=== PATIENT | female | born 1965 | race Caucasian/White ===

== ENCOUNTER 2017-10-07 21:35 | Observation (INO) | payer BC ==
[2017-10-07 22:31] LABS: ABS Basophils 0.1 10^3/ul (0-0.2); ABS Eosinophils 0.1 10^3/ul (0-0.6); ABS Lymphocytes 2.5 10^3/ul (1.0-4.8); ABS Monocytes 0.7 10^3/ul (0-0.8); ABS Nucleated RBC 0 10^3/ul; Hematocrit 42 % (35-47); Hemoglobin 14.3 g/dl (12.0-16.0); Lymphocyte % 33.8 % (25-47); Mean Corpuscular HGB Conc 34 g/dl (31-36); Mean Corpuscular Hemoglobin 29 pg (27-31); Mean Corpuscular Volume 84 fL (80-97); Mean Platelet Volume 8 um3 (7.4-10.4); Nucleated Red Blood Cells % 0; Platelet Count 360 10^3/ul (150-450); Red Blood Count 4.99 10^6/ul (4.0-5.4); Red Cell Distribution Width 13 % (10.5-15); White Blood Count 7.5 10^3/ul (3.5-10.8)
[2017-10-07 22:44] LABS: EGFR Non-African American 63.8 (>60)
[2017-10-07] MEDS ORDERED: Enoxaparin(*) 100 MG/ML SYR SUBCUT ONE (22:49)
[2017-10-07] MEDS ORDERED: Clopidogrel TAB* 300 MG PO ONE (22:49)
[2017-10-07] MEDS ORDERED: Aspirin Low Dose CHEW TAB* 81 MG PO ONE (22:49)
[2017-10-07] MEDS ORDERED: Metoprolol Tartrate TAB* 25 MG PO ONE (22:50)
--- NOTE | 2017-10-07 23:22 | ED ---
Iban Wang Tecjoon, scribed for Sesar Jeffries MD on 10/07/17 at 2222 . HPI Chest Pain - HPI Summary HPI Summary: This patient is a 52 year old female presenting to [facility] with a chief complaint of chest pain since approx. 1300 today. The pain is localized in her upper right chest and radiates to her back. Patient states that it is a weird twitching sensation. The pain is intermittent. The pain is rated 2/10 in severity. Symptoms aggravated by nothing. Symptoms alleviated by laying prone on stomach. Patient denies fever, SOB. Patient states she has a history of chest pain related to anxiety. - History of Current Complaint Chief Complaint: EDChestPainROMI Time Seen by Provider: 10/07/17 21:52 Hx Obtained From: Patient Onset/Duration: Started Hours Ago, Resolved Timing: Intermittent Initial Severity: Mild Current Severity: None Pain Intensity: 2 Pain Scale Used: 0-10 Numeric Chest Pain Location: Upper Sternal Chest Pain Radiates: Yes Aggravating Factor(s): Nothing Alleviating Factor(s): Position - lying on stomach Associated Signs and Symptoms: Positive: Negative - fever, SOB - Allergy/Home Medications Allergies/Adverse Reactions: Allergies Allergy/AdvReac Type Severity Reaction Status Date / Time Penicillins Allergy Unknown Verified 10/07/17 21:41 Reaction Details PMH/Surg Hx/FS Hx/Imm Hx Previously Healthy: Yes Opthamlomology History: Denies: Hx Legally Blind EENT History: Denies: Hx Deafness Infectious Disease History: No Infectious Disease History: Denies: Traveled Outside the [place] in Last 30 Days - Family History Known Family History: Negative: Hypertension - Social History Lives: With Family Alcohol Use: None Hx Substance Use: No Substance Use Type: Reports: None Hx Tobacco Use: No Smoking Status (MU): Never Smoked Tobacco Review of Systems Negative: Fever Positive: Chest Pain Negative: Shortness Of Breath All Other Systems Reviewed And Are Negative: Yes Physical Exam - Summary Physical Exam Summary: VITAL SIGNS: Reviewed. GENERAL: Patient is a well-developed and nourished female who is lying comfortable in the stretcher. Patient is not in any acute respiratory distress. HEAD AND FACE: No signs of trauma. No ecchymosis, hematomas or skull depressions. No sinus tenderness. EYES: PERRLA, EOMI x 2, No injected conjunctiva, no nystagmus. EARS: Hearing grossly intact. Ear canals and tympanic membranes are within normal limits. MOUTH: Oropharynx within normal limits. NECK: Supple, trachea is midline, no adenopathy, no JVD, no carotid bruit, no c- spine tenderness, neck with full ROM. CHEST: Symmetric, no tenderness at palpation LUNGS: Clear to auscultation bilaterally. No wheezing or crackles. CVS: Regular rate and rhythm, S1 and S2 present, no murmurs or gallops appreciated. ABDOMEN: Soft, non-tender. No signs of distention. No rebound no guarding, and no masses palpated. Bowel sounds are normal. EXTREMITIES: FROM in all major joints, no edema, no cyanosis or clubbing. NEURO: Alert and oriented x 3. No acute neurological deficits. Speech is normal and follows commands. SKIN: Dry and warm Triage Information Reviewed: Yes Vital Signs On Initial Exam: Initial Vitals Temp Pulse Resp BP Pulse Ox 98.9 F 87 14 143/87 96 10/07/17 21:41 10/07/17 21:41 10/07/17 21:41 10/07/17 21:41 10/07/17 21:41 Vital Signs Reviewed: Yes Diagnostics - Vital Signs Vital Signs Temp Pulse Resp BP Pulse Ox 10/07/17 22:00 20 124/72 10/07/17 21:58 21 131/89 10/07/17 21:41 98.9 F 87 14 143/87 96 - Laboratory Lab Results: Lab Results 10/07/17 10/07/17 Range/Units 21:58 21:58 WBC 7.5 (3.5-10.8) 10^3/ul RBC 4.99 (4.0-5.4) 10^6/ul Hgb 14.3 (12.0-16.0) g/dl Hct 42 (35-47) % MCV 84 (80-97) fL MCH 29 (27-31) pg MCHC 34 (31-36) g/dl RDW 13 (10.5-15) % Plt Count 360 (150-450) 10^3/ul MPV 8 (7.4-10.4) um3 Neut % (Auto) 54.0 (38-83) % Lymph % (Auto) 33.8 (25-47) % Sargent % (Auto) 9.5 H (1-9) % Eos % (Auto) 2.0 (0-6) % Baso % (Auto) 0.7 (0-2) % Absolute Neuts (auto) 4.0 (1.5-7.7) 10^3/ul Absolute Lymphs (auto) 2.5 (1.0-4.8) 10^3/ul Absolute Monos (auto) 0.7 (0-0.8) 10^3/ul Absolute Eos (auto) 0.1 (0-0.6) 10^3/ul Absolute Basos (auto) 0.1 (0-0.2) 10^3/ul Absolute Nucleated RBC 0 10^3/ul Nucleated RBC % 0 Sodium 138 (133-145) mmol/L Potassium 3.5 (3.5-5.0) mmol/L Chloride 101 (101-111) mmol/L Carbon Dioxide 30 (22-32) mmol/L Anion Gap 7 (2-11) mmol/L BUN 17 (6-24) mg/dL Creatinine 0.93 (0.51-0.95) mg/dL Est GFR ( Amer) 82.1 (>60) Est GFR (Non-Af Amer) 63.8 (>60) BUN/Creatinine Ratio 18.3 (8-20) Glucose 108 H (70-100) mg/dL Calcium 9.9 (8.6-10.3) mg/dL Total Bilirubin 1.10 H (0.2-1.0) mg/dL AST 18 (13-39) U/L ALT 18 (7-52) U/L Alkaline Phosphatase 97 (34-104) U/L Troponin I 0.35 H* (<0.04) ng/mL Total Protein 7.6 (6.4-8.9) g/dL Albumin 4.4 (3.2-5.2) g/dL Globulin 3.2 (2-4) g/dL Albumin/Globulin Ratio 1.4 (1-3) Result Diagrams: 10/07/17 21:58 10/07/17 21:58 Lab Statement: Any lab studies that have been ordered have been reviewed, and results considered in the medical decision making process. - Radiology CXR Xray Interpretation: No Acute Changes - CXR reveals, per radiologist, IMPRESSION : No Acute Process. ED physician has reviewed this radiology report. Radiology Interpretation Completed By: Radiologist - EKG 2143 Cardiac Rate: NL EKG Rhythm: Sinus Rhythm - 72 BPM EKG Interpretation: NSR (72 BPM), Normal axis. Normal interval. No ischemic changes Chest Pain Course/Dx - Course Course Of Treatment: This patient is a 52 year old female presenting to [facility] with a chief complaint of chest pain since approx. 1300 today. The pain is localized in her upper right chest and radiates to her back. The pain is intermittent. An EKG, taken 2143, reveals NSR (72 BPM), Normal axis. Normal interval. No ischemic changes. CXR reveals, per radiologist, IMPRESSION: No Acute Process. ED physician has reviewed this radiology report. Bloodwork Obtained. Urinalysis Obtained. In the ED course the patient was given Aspirin, Lovenox, Plavix, Lopressor. We discussed patient care with Dr. Martinez and they agreed to admit the patient. The patient is agreeable with this plan. - Chest Pain Differential Diagnosis/HQI/PQRI: Acute OH - NSTEMI - Diagnoses Provider Diagnoses: Non-STEMI (non-ST elevated myocardial infarction) - Provider Notifications Discussed Care Of Patient With: Jasmine Martinez Time Discussed With Above Provider: 23:07 - We discussed patient care with Dr. Martinez and they agreed to admit the patient. Instructed by Provider To: Admit As Inpatient Discharge - Discharge Plan Condition: Fair Disposition: ADMITTED TO [facility] Referrals: Trisha Richard MD [Primary Care Provider] - The documentation as recorded by the Iban hyman Tecjoon accurately reflects the service I personally performed and the decisions made by Mervin perales Abdul, MD.
[2017-10-07] MEDS ORDERED: Senna TAB PO PRN (23:26)
[2017-10-07] MEDS ORDERED: Al Hydrox/Mg Hydrox/Simet LIQ* 30 ML UDC PO PRN (23:26)
[2017-10-07] MEDS ORDERED: Ondansetron INJ* 2 MG/ML VIAL IV PRN (23:26)
[2017-10-07] MEDS ORDERED: Docusate CAP* 100 MG PO PRN (23:26)
[2017-10-07] MEDS ORDERED: Morphine INJ* 2 MG/ML 1 ML CARPUJECT IV PRN (23:26)
[2017-10-07] MEDS ORDERED: Acetaminophen TAB* 325 MG PO PRN (23:26)
[2017-10-07] MEDS ORDERED: Potassium Chlor TAB* 20 MEQ TAB.ER PO ONE (23:43)
[2017-10-07] MEDS ORDERED: Isosorbide Dinitrate TAB* 5 MG PO SCH (23:45)
[2017-10-07] MEDS ORDERED: NS 0.9% 1000 ML* 1,000 ML IV SCH (23:45)
--- NOTE | 2017-10-08 00:48 | HP ---
CC: Trisha Richard MD HISTORY AND PHYSICAL: DATE OF ADMISSION: 10/07/17 PRIMARY CARE PHYSICIAN: Trisha Richard MD TIME OF EVALUATION: 2300 CHIEF COMPLAINT: Chest pain. HISTORY OF PRESENT ILLNESS: This is a 52-year-old female with an unremarkable past medical history who presented to the emergency room after having onset of persistent left-sided chest pain. 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 It would come and go every few seconds for a few minutes and then will be gone and then will come back on. Nothing seem to improve this. She had first thought it was musculoskeletal related. She went to go get a massage. It seemed to help while she was on her stomach, but then she symptoms returned when she went on her back. They seem to come and go without any specific pattern. SHe does seem to be burping a lot more. She went to the ER a few years ago for chest pain that turned out to be heart burn. She was concerned because she is flying to [place] and her friends encouraged her to come and get it checked out. No currently chest pain 'twinges' currently. She has also had some issues with vertigo for the past 2 weeks. She started going to the gym 2 weeks ago, but denied any exertional heavy lifting activity. There was no associated shortness of breath. No nausea. No diaphoresis. She had a URI illness that lasted about 2 weeks back in July. She denies any weight changes. No lower extremity swelling. In the emergency room, the patient had labs and imaging. She was found to have an elevated troponin. She was given full dose aspirin, Plavix, Lovenox and Lopressor 25 mg and was referred to the hospitalist service for further evaluation. PAST MEDICAL HISTORY: Trigeminal neuralgia. MEDICATIONS: None. FAMILY HISTORY: She is not sure. Her uncle at a young age. Otherwise, no history of early coronary artery disease. 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 No tobacco use. Rare alcohol use. No illicit drug use. Her healthcare proxy is her mother, Jaja. REVIEW OF SYSTEMS: A 14-point review of systems as mentioned in the HPI, otherwise negative. PHYSICAL EXAMINATION GENERAL: No acute distress, resting comfortably. VITAL SIGNS: Temp 98.9, pulse rate 88, respiratory rate 23, oxygen saturation 97% on room air, blood pressure 138/87. HEENT: Head is normocephalic. Pupils are equal and reactive and anicteric. Oropharynx: Mucous membranes moist. NECK: Supple. No lymphadenopathy. RESPIRATORY: Clear to auscultation. No wheezes, rhonchi or rales. CARDIAC: Regular rate and rhythm. No murmurs, rubs or gallops. ABDOMEN: Soft, nontender, nondistended. EXTREMITIES: No clubbing, cyanosis, or edema. +2 DPs. NEUROLOGIC: Alert and oriented x3. No focal neurological deficits. LABORATORY DATA: White count 7.5, hemoglobin 14.3, hematocrit 42, platelets 316,000. Sodium 138, potassium 3.5, chloride 101, bicarb 30, BUN 14, creatinine 0.93, glucose 108. Bili is 1.10. Troponin is 0.35. RADIOGRAPHIC DATA: EKG shows sinus rhythm with no significant ST findings. Chest x-ray wet read, no significant findings. ASSESSMENT: This is a 52-year-old female with an unremarkable past medical history who presents to the emergency room with left-sided twinges, was found to have an elevated troponin. 1. Chest pain. Assessment: Concerning that the patient has an elevated troponin, I did speak with Dr. Chapin, who also suggested this could be vasospasm, but also concerning for an NSTEMI. Plan: We will admit her to the ICU. Continue to trend her troponin, check a lipid panel. We will continue on her baby aspirin. We will also start her on Isordil low dose in addition to a beta-mario low dose and we will continue the Lovenox subcu b.i.d. We will follow up with Dr. Chapin, keep her n.p.o. and place her on some fluids and replete her potassium. We will also check inflammatory markers to rule out any signs of pericarditis. 2. FEN: N.p.o. after midnight. IV fluids. 3. Code status: Full code. 4. DVT prophylaxis. The patient scored low risk, but she will be on Lovenox for anticoagulation. TIME SPENT: Greater than 50 minutes spent doing the history and physical, more than half the time spent in direct patient contact. ADDENDUM Discharge NOTE: 3 hour repeat troponin 0.00. Concern that initial troponin was a false positive. Asked the lab to re-run the troponin from initial ER sample and it was 0.00. Patient then had a third troponin that was 0.00. She was burping a lot through her admission with minimal discomfort. Discussed she has a LUCA score of 0 and is low risk and stated that she could be discharged based on the fact that she had a false positive troponin level. Vitals remained within normal limits. Discharge instructions given and patient is to follow up with her primary care physician, Dr. Richard. [id number]/[facility] #: [id number] MTDGabriel
[2017-10-08 03:33] VITALS: BP 108/73
--- NOTE | 2017-10-08 08:03 | RAD ---
HISTORY: Chest pain COMPARISONS: March 12, 2007 VIEWS: 1: frontal portable view of the chest at 10:24 PM FINDINGS: LINES AND TUBES: None. CARDIOMEDIASTINAL SILHOUETTE: The cardiomediastinal silhouette is normal for portable technique. PLEURA: The costophrenic angles are sharp. No pleural abnormalities are noted. LUNG PARENCHYMA: The lungs are clear. ABDOMEN: The upper abdomen is clear. There is no subphrenic gas. BONES AND SOFT TISSUES: No bone or soft tissue abnormalities are noted. IMPRESSION: NO ACTIVE CARDIOPULMONARY DISEASE.
[2017-10-08] MEDS ORDERED: Aspirin EC Low Dose* 81 MG TAB.EC PO SCH (09:00)
[2017-10-08] MEDS ORDERED: Metoprolol Tartrate TAB* 25 MG PO SCH (09:00)
[2017-10-08] MEDS ORDERED: Enoxaparin(*) 100 MG/ML SYR SUBCUT SCH (11:00)
== END 2017-10-08 04:30 | disposition home or self-care (01) | DRG 203 ==
LOC: ED 21:35 → ICU 23:26 → UNDOADMOB 10-08 00:07 → INTOOBSV 10-08 00:07 → ICU 10-08 00:07 → UNDODISOB 10-08 04:30
PROVIDERS: ADMIT Pediatrics; ATTEND Pediatrics
DX: I21.4 Non-ST elevation (NSTEMI) myocardial infarction (principal); G50.0 Trigeminal neuralgia; Z88.0 Allergy status to penicillin
CPT/HCPCS: 36415; 71045; 80053; 83735; 84443; 84484; 85025; 85652; 86140; 93005; 99284; A9270-GY; J1650